=== PATIENT | male | born 1975 | race Caucasian/White ===

== ENCOUNTER 2019-01-14 08:31 | Emergency (ER) | payer MEDICAID ==
[~2019-01-14] VITALS: Ht 172.7 cm; Wt 90.7 kg
[2019-01-14 08:37] VITALS: BP_SYST 155
[2019-01-14 09:16] VITALS: BP_SYST 155
== END 2019-01-14 09:15 | disposition home or self-care (01) ==
LOC: SED 08:31
DX: S00.81XA Abrasion of other part of head, initial encounter (principal); W22.8XXA Striking against or struck by other objects, initial encounter; Y93.89 Activity, other specified; Y92.89 Other specified places as the place of occurrence of the external cause; Y99.8 Other external cause status
CPT/HCPCS: 99283